=== PATIENT | male | born 1955 | race Hispanic/Latino ===

== ENCOUNTER 2022-07-21 15:54 | Inpatient (IN) | payer MEDICARE ==
[2022-07-21 16:46] LABS: #Basophils 0.1 10x3/uL (0.0-0.2); #Eosinphils 0.7 10x3/uL (0.0-0.5); #Monocytes 0.3 10x3/uL (0.0-1.1); #Neutrophils 2.3 10x3/uL (1.5-8.4); %Basophils 1.7 % (0.0-2.0); %Eosinophils 17.4 % (0.0-6.0); %Lymphocytes 18.6 % (18.0-47.0); %Monocytes 6.3 % (0.0-10.0); Hemoglobin 11.5 g/dL (13.5-17.5); Mean Corpuscular HGB CONC 33.1 g/dL (32.0-36.0); Mean Corpuscular Hemoglobin 30.5 pg (27.0-33.0); Mean Platelet Volume 9.2 fl (7.4-10.4); Platelet Count 250 10x3/uL (150-450); RBC Distribution Width 14.8 % (11.5-14.5); Red Blood Cell (RBC) Count 3.77 10x6/uL (4.32-5.72); White Blood Cell (WBC) Count 4.1 10x3/uL (3.5-10.5)
[2022-07-21 16:55] LABS: ALT (SGPT) 13 U/L (8-55); AST (SGOT) 21 U/L (5-34); Albumin 4.1 g/dL (3.4-4.8); Alkaline Phosphatase 112 U/L (40-110); Anion Gap 13 mmol/L (10-20); BUN (Urea Nitrogen) 17 mg/dL (8.4-25.7); Bilirubin, Total 0.5 mg/dL (0.2-1.2); Calc. Creatinine Clearance 0 mL/min (70-130); Calcium 9.3 mg/dL (7.8-10.44); Carbon Dioxide 25 mmol/L (23-31); Chloride 104 mmol/L (98-107); Estimated GFR 63; Globulin 2.2 g/dL (2.4-3.5); Glucose 194 mg/dL (80-115); Potassium 4.3 mmol/L (3.5-5.1); Protein, Total 6.3 g/dL (5.8-8.1); Sodium 138 mmol/L (136-145)
[2022-07-21] MEDS ORDERED: methylPREDNISolone Sod Succ/PF 125 MG/2 ML VIAL ONE (17:19)
[2022-07-21] MEDS ORDERED: Acetaminophen 325 MG TAB PO PRN (18:09)
[2022-07-21] MEDS ORDERED: Acetaminophen 650 MG Suppository PR PRN (18:09)
[2022-07-21] MEDS ORDERED: Dextrose 5% in Water 1,000 ML IV PRN (18:11)
[2022-07-21] MEDS ORDERED: Dextrose 50% Abboject 50 ML SYRINGE SLOW IVP PRN (18:11)
[2022-07-21] MEDS ORDERED: Insulin Regular 300 UNITS/3 ML VIAL SC PRN (18:11)
[2022-07-21 20:03] LABS: Troponin I 0.019 ng/mL (< 0.028)
[2022-07-21] MEDS ORDERED: Simvastatin 10 MG TAB PO SCH (21:00)
[2022-07-21 21:36] LABS: Troponin I 0.016 ng/mL (< 0.028)
[2022-07-21] MEDS: Insulin Regular 300 UNITS/3 ML VIAL SC PRN (22:00)
[2022-07-21 22:15] VITALS: BMI 25.9
[2022-07-21] MEDS ORDERED: FLU VACC QS2022-23(65YR UP)/PF 240 MCG/0.7 ML SYRINGE IM ONE (22:30)
[2022-07-22 04:45] LABS: Hemoglobin 11.5 g/dL (13.5-17.5); Mean Corpuscular HGB CONC 32.2 g/dL (32.0-36.0); Mean Corpuscular Hemoglobin 29.6 pg (27.0-33.0); Mean Corpuscular Volume 91.8 fl (81.2-95.1); Mean Platelet Volume 10.7 fl (7.4-10.4); Platelet Count 248 10x3/uL (150-450); Red Blood Cell (RBC) Count 3.89 10x6/uL (4.32-5.72); White Blood Cell (WBC) Count 4.3 10x3/uL (3.5-10.5)
[2022-07-22 05:00] LABS: Anion Gap 16 mmol/L (10-20); BUN (Urea Nitrogen) 23 mg/dL (8.4-25.7); Calc. Creatinine Clearance 54 mL/min (70-130); Calcium 8.9 mg/dL (7.8-10.44); Carbon Dioxide 22 mmol/L (23-31); Chloride 100 mmol/L (98-107); Estimated GFR 53; Potassium 4.8 mmol/L (3.5-5.1); Sodium 133 mmol/L (136-145)
[2022-07-22 05:08] LABS: Glucose 609 mg/dL (80-115)
[2022-07-22] MEDS ORDERED: Insulin Regular 300 UNITS/3 ML VIAL IVP SCH (05:30)
[2022-07-22] MEDS ORDERED: Sodium Chloride 0.9% 500 ML IV SCH (05:30)
[2022-07-22 06:39] LABS: MDiff Complete? YES; Platelet Morphology Comment Appears Adequate
[2022-07-22 06:41] LABS: Band 2 % (5-11); Lymphocytes 9 % (21-51); Monocytes 5 % (0-10); Neutrophil 84 % (42-75)
[2022-07-22] MEDS: Aspirin 81 mg Enteric Coated Tablet PO SCH (08:35)
[2022-07-22] MEDS ORDERED: Lidocaine 1% PF 5 ML VIAL ONE ×2 (11:00→11:02)
[2022-07-22] MEDS ORDERED: Insulin Regular 300 UNITS/3 ML VIAL SC PRN (12:07)
[2022-07-22] MEDS: Insulin Regular 300 UNITS/3 ML VIAL SC PRN ×3 (12:18→20:50)
[2022-07-22] MEDS: Atorvastatin Calcium 10 MG TAB PO SCH (20:50)
[2022-07-22] MEDS ORDERED: Lantus 1000 UNITS/10 ML VIAL SC SCH (21:00)
[2022-07-23 04:57] LABS: #Basophils 0.1 10x3/uL (0.0-0.2); #Eosinphils 0.3 10x3/uL (0.0-0.5); #Monocytes 0.3 10x3/uL (0.0-1.1); #Neutrophils 2.2 10x3/uL (1.5-8.4); %Basophils 1.6 % (0.0-2.0); %Lymphocytes 22.2 % (18.0-47.0); %Monocytes 7.4 % (0.0-10.0); %Neutrophils 58.5 % (40.0-75.0); Anion Gap 11 mmol/L (10-20); BUN (Urea Nitrogen) 22 mg/dL (8.4-25.7); Calc. Creatinine Clearance 73 mL/min (70-130); Calcium 8.9 mg/dL (7.8-10.44); Carbon Dioxide 26 mmol/L (23-31); Chloride 107 mmol/L (98-107); Estimated GFR 76; Glucose 74 mg/dL (80-115); Hemoglobin 11.4 g/dL (13.5-17.5); Mean Corpuscular HGB CONC 32.7 g/dL (32.0-36.0); Mean Corpuscular Hemoglobin 29.6 pg (27.0-33.0); Mean Corpuscular Volume 90.6 fl (81.2-95.1); Mean Platelet Volume 9.8 fl (7.4-10.4); Platelet Count 249 10x3/uL (150-450); RBC Distribution Width 15.1 % (11.5-14.5); Red Blood Cell (RBC) Count 3.85 10x6/uL (4.32-5.72); Sodium 140 mmol/L (136-145); White Blood Cell (WBC) Count 3.8 10x3/uL (3.5-10.5)
[2022-07-23] MEDS: Aspirin 81 mg Enteric Coated Tablet PO SCH (08:35)
[2022-07-23] MEDS: Lisinopril 10 MG TAB PO SCH (08:35)
[2022-07-23 11:40] LABS: Hemoglobin A1c 8.4 % (4.0-6.0)
[2022-07-23] MEDS: Insulin Regular 300 UNITS/3 ML VIAL SC PRN ×2 (12:06→20:48)
[2022-07-23 12:53] LABS: Magnesium 2.1 mg/dL (1.6-2.6)
[2022-07-23] MEDS: Atorvastatin Calcium 10 MG TAB PO SCH (20:47)
[2022-07-23] MEDS: Lantus 1000 UNITS/10 ML VIAL SC SCH (20:47)
[2022-07-24 05:13] LABS: Anion Gap 11 mmol/L (10-20); BUN (Urea Nitrogen) 25 mg/dL (8.4-25.7); Calc. Creatinine Clearance 68 mL/min (70-130); Calcium 8.7 mg/dL (7.8-10.44); Carbon Dioxide 25 mmol/L (23-31); Chloride 107 mmol/L (98-107); Estimated GFR 71; Glucose 129 mg/dL (80-115); Potassium 3.9 mmol/L (3.5-5.1); Sodium 139 mmol/L (136-145)
[2022-07-24 05:21] LABS: #Basophils 0.1 10x3/uL (0.0-0.2); #Eosinphils 0.7 10x3/uL (0.0-0.5); #Monocytes 0.3 10x3/uL (0.0-1.1); #Neutrophils 2.2 10x3/uL (1.5-8.4); %Basophils 1.5 % (0.0-2.0); %Eosinophils 16.6 % (0.0-6.0); %Monocytes 7.1 % (0.0-10.0); %Neutrophils 54.3 % (40.0-75.0); Hemoglobin 11.7 g/dL (13.5-17.5); Mean Corpuscular HGB CONC 32.8 g/dL (32.0-36.0); Mean Corpuscular Hemoglobin 29.7 pg (27.0-33.0); Mean Corpuscular Volume 90.6 fl (81.2-95.1); Mean Platelet Volume 9.6 fl (7.4-10.4); Platelet Count 221 10x3/uL (150-450); RBC Distribution Width 14.9 % (11.5-14.5); Red Blood Cell (RBC) Count 3.94 10x6/uL (4.32-5.72); White Blood Cell (WBC) Count 4.1 10x3/uL (3.5-10.5)
[2022-07-24] MEDS: Aspirin 81 mg Enteric Coated Tablet PO SCH (07:57)
[2022-07-24] MEDS: Lisinopril 10 MG TAB PO SCH (07:57)
[2022-07-24] MEDS: Insulin Regular 300 UNITS/3 ML VIAL SC PRN ×2 (12:04→17:13)
[2022-07-24 20:12] LABS: Bilirubin Neg (Negative); Blood, Urine 25 (Negative); CAUTI Indications for Culture Dysuria,urgency,freq; Clarity Slightly Cloudy (Clear); Glucose, Urine (Dipstick) 100 mg/dL (Negative); Ketone, Urine Negative (Negative); Leukocyte 500 (Negative); Nitrite Negative (Negative); Protein, Urine (Dipstick) 30 mg/dl (Neg-Trace); Urobilinogen Normal mg/dL (Less than 2)
[2022-07-24 20:14] LABS: Urine Culture Reflex No No
[2022-07-24 20:27] LABS: Bacteria/HPF 3+ HPF (None Seen); RBC/HPF 0-3 HPF (0-3); Squamous Epithelial 0-3 HPF (0-3); WBC/HPF 21-50 HPF (0-3)
[2022-07-24] MEDS: Atorvastatin Calcium 10 MG TAB PO SCH (21:04)
[2022-07-24] MEDS: cefTRIAXone\\ROCEPHIN 1 GM in Sodium Chloride 0.9% 100 ML IVPB SCH (21:05)
[2022-07-24] MEDS: Lantus 1000 UNITS/10 ML VIAL SC SCH (21:06)
[2022-07-25 04:24] LABS: Anion Gap 14 mmol/L (10-20); BUN (Urea Nitrogen) 24 mg/dL (8.4-25.7); Calc. Creatinine Clearance 74 mL/min (70-130); Calcium 8.9 mg/dL (7.8-10.44); Carbon Dioxide 22 mmol/L (23-31); Chloride 108 mmol/L (98-107); Estimated GFR 77; Glucose 72 mg/dL (80-115); Sodium 140 mmol/L (136-145)
[2022-07-25 04:44] LABS: #Basophils 0.1 10x3/uL (0.0-0.2); #Eosinphils 0.6 10x3/uL (0.0-0.5); #Monocytes 0.3 10x3/uL (0.0-1.1); %Basophils 1.6 % (0.0-2.0); %Lymphocytes 20.8 % (18.0-47.0); %Monocytes 7.7 % (0.0-10.0); %Neutrophils 53.1 % (40.0-75.0); Hemoglobin 12.4 g/dL (13.5-17.5); Mean Corpuscular HGB CONC 32.6 g/dL (32.0-36.0); Mean Corpuscular Hemoglobin 29.3 pg (27.0-33.0); Mean Corpuscular Volume 89.8 fl (81.2-95.1); Mean Platelet Volume 10.2 fl (7.4-10.4); Platelet Count 225 10x3/uL (150-450); RBC Distribution Width 14.6 % (11.5-14.5); Red Blood Cell (RBC) Count 4.23 10x6/uL (4.32-5.72); White Blood Cell (WBC) Count 3.8 10x3/uL (3.5-10.5)
[2022-07-25] MEDS ORDERED: Lisinopril 5 MG TAB PO SCH (09:00)
[2022-07-25] MEDS: Aspirin 81 mg Enteric Coated Tablet PO SCH (09:59)
[2022-07-25] MEDS: Insulin Regular 300 UNITS/3 ML VIAL SC PRN ×3 (12:25→21:31)
[2022-07-25] MEDS: cefTRIAXone\\ROCEPHIN 1 GM in Sodium Chloride 0.9% 100 ML IVPB SCH (21:25)
[2022-07-25] MEDS: Atorvastatin Calcium 10 MG TAB PO SCH (21:25)
[2022-07-25] MEDS: Lantus 1000 UNITS/10 ML VIAL SC SCH (21:30)
[2022-07-26] MEDS: Aspirin 81 mg Enteric Coated Tablet PO SCH (08:27)
[2022-07-26 12:15] VITALS: BP 142/66; TEMP 98.1
== END 2022-07-26 13:00 | disposition home or self-care (01) | DRG 261 ==
LOC: CSHERS 15:54 → CSHTELE 20:46 → OBSVTOIN 07-23 18:45
PROVIDERS: ADMIT Family Medicine; ATTEND Family Medicine
PROC: 0JH602Z Insertion of Monitoring Device into Chest Subcutaneous Tissue and Fascia, Open Approach (ICD-10-PCS; principal; 2022-07-23)
DX: R55 Syncope and collapse (principal); I47.20 Ventricular tachycardia, unspecified; Z20.822 Contact with and (suspected) exposure to COVID-19; J44.9 Chronic obstructive pulmonary disease, unspecified; F17.210 Nicotine dependence, cigarettes, uncomplicated; I10 Essential (primary) hypertension; E78.2 Mixed hyperlipidemia; E11.42 Type 2 diabetes mellitus with diabetic polyneuropathy; M51.16 Intervertebral disc disorders with radiculopathy, lumbar region; E55.9 Vitamin D deficiency, unspecified; E11.51 Type 2 diabetes mellitus with diabetic peripheral angiopathy without gangrene; I25.118 Atherosclerotic heart disease of native coronary artery with other forms of angina pectoris; I95.1 Orthostatic hypotension; I65.29 Occlusion and stenosis of unspecified carotid artery; Z88.0 Allergy status to penicillin; I25.2 Old myocardial infarction; Z95.5 Presence of coronary angioplasty implant and graft; Z79.82 Long term (current) use of aspirin; Z79.02 Long term (current) use of antithrombotics/antiplatelets; Z79.899 Other long term (current) drug therapy; Z79.4 Long term (current) use of insulin; Z71.6 Tobacco abuse counseling; Z92.21 Personal history of antineoplastic chemotherapy; Z85.72 Personal history of non-Hodgkin lymphomas; Z86.16 Personal history of COVID-19; Z82.49 Family history of ischemic heart disease and other diseases of the circulatory system; Z83.3 Family history of diabetes mellitus
CPT/HCPCS: 33285; 36415; 36416; 70450; 71045; 72125; 76705; 80048; 80053; 81001; 82533; 83036; 83690; 83735; 84439; 84443; 84484; 85025; 93005; 94760; 96374; C1764; G0378; J0696; J1815; J2930; J3490; J7030; J7620; U0003; U0005